=== PATIENT | male | born 1990 | race Caucasian/White ===

== ENCOUNTER 2018-07-06 20:50 | Emergency (ER) | payer SELFPAY ==
[2018-07-06 21:05] VITALS: BP 145/73; PULSE 89; TEMP 97.3; BMI 28.7
--- NOTE | 2018-07-06 21:36 | PDOC ---
History of Present Illness - General Chief Complaint: Lightheaded Stated Complaint: DIZZINESS Time Seen by Provider: 07/06/18 21:19 - History of Present Illness Initial Comments: 07/06/18 21:34 28 yo M with h/o vertigo, anxiety, who p/w dizziness. Patient reports acute onset of "spinning sensation," this evening when inside his car. Reports being startled in his car, when someone walked to his window and told him his car tire was flat. Symptom severity decreased after minutes, but recurred again when laying on the floor. States that he felt that the room was swaying. Symptom lasted for an hour. No identifiable triggers or alleviators. Reports h/ o similar symptoms years ago. Also endorses GI upset today following startle response. Recently recovered from URI type illness, congestion, and cough. + Nausea without vomiting x 1 week. Able to tolerate PO intake. Patient denies tinnitus, hearing loss, BARRETO, cough, wheezing, palpitations, F/C, CP, SOB, urinary complaints, hematuria, abdominal pain, diarrhea, constipation, BPR, weakness, sensory changes. PMHx: as noted above ROS: as noted Allergies: NKDA Medication: None Past History - Past Medical History Allergies/Adverse Reactions: Allergies Allergy/AdvReac Type Severity Reaction Status Date / Time No Known Allergies Allergy Verified 07/06/18 23:22 Home Medications: Ambulatory Orders No Home Medications 0 dose .ROUTE UTDICT 08/30/13 Meclizine HCl [Antivert -] 12.5 mg PO TID #21 tablet 07/06/18 Asthma: Yes - Suicide/Smoking/Psychosocial Hx Smoking History: Never smoked Information on smoking cessation initiated: No Hx Alcohol Use: No Drug/Substance Use Hx: No Review of Systems - Review of Systems Comments:: 07/06/18 21:35 GENERAL/CONSTITUTIONAL: No fever or chills. No weakness. HEAD, EYES, EARS, NOSE AND THROAT: No change in vision. No ear pain or discharge. No sore throat. CARDIOVASCULAR: No chest pain or shortness of breath RESPIRATORY: No cough, wheezing, or hemoptysis. GASTROINTESTINAL: + nausea. No vomiting, diarrhea or constipation. GENITOURINARY: No dysuria, frequency, or change in urination. MUSCULOSKELETAL: No joint or muscle swelling or pain. No neck or back pain. SKIN: No rash NEUROLOGIC: + Dizziness. No headache, loss of consciousness, or change in strength/sensation. ENDOCRINE: No increased thirst. No abnormal weight change HEMATOLOGIC/LYMPHATIC: No anemia, easy bleeding, or history of blood clots. ALLERGIC/IMMUNOLOGIC: No hives or skin allergy. *Physical Exam - Vital Signs Last Vital Signs Temp Pulse Resp BP Pulse Ox 97.3 F L 89 20 145/73 99 07/06/18 21:01 07/06/18 21:01 07/06/18 21:01 07/06/18 21:01 07/06/18 21:01 - Physical Exam Comments: 07/06/18 21:35 GENERAL: Awake, alert, and fully oriented, in no acute distress HEAD: No signs of trauma, normocephalic, atraumatic EYES: PERRLA, EOMI, sclera anicteric, conjunctiva clear ENT: Auricles normal inspection, hearing grossly normal, nares patent, oropharynx clear without exudates. Moist mucosa NECK: Normal ROM, supple, no lymphadenopathy, JVD, or masses LUNGS: No distress, speaks full sentences, clear to auscultation bilaterally HEART: Regular rate and rhythm, normal S1 and S2, no murmurs, rubs or gallops, peripheral pulses normal and equal bilaterally. ABDOMEN: Soft, nontender, normoactive bowel sounds. No guarding, no rebound. No masses EXTREMITIES : Normal inspection, Normal range of motion, no edema. No clubbing or cyanosis. NEUROLOGICAL: Absent Nystagmus. Cranial nerves II through XII grossly intact. Normal speech, normal gait, no focal sensorimotor deficits. Neg dysmetria on FTN. Normal HTS, DANETTE. SKIN: Warm, Dry, normal turgor, no rashes or lesions noted Medical Decision Making - Medical Decision Making 07/06/18 22:17 28 yo M with h/o vertigo, anxiety, who p/w dizziness. VSS, AF. Dizziness described as spinning sensation. Absent neuro deficits on physical exam. Absent Nystagmus. Low suspicion central vertigo. Symptoms likely 2/2 peripheral vertigo. Low suspicion VBI/TIA, or other concerning central pathology. Ed Course: Meclizine, Zofran, Ranitidine, Maloox 07/06/18 23:19 Patient symptoms improved. Stable for d/c with return precautions. Advised to f/ u with PMD. 07/06/18 23:27 Meclzine sent to pharmacy *DC/Admit/Observation/Transfer Diagnosis at time of Disposition: Vertigo - Discharge Dispostion Condition at time of disposition: Stable Decision to Admit order: No - Prescriptions Prescriptions: Meclizine HCl [Antivert -] 12.5 mg PO TID #21 tablet - Referrals - Patient Instructions Printed Discharge Instructions: DI for Syncope in Adults (Fainting), DI for Vertigo Additional Instructions: Please return to the emergency department with any new or worsening symptoms or concerns. Please follow up with your primary care physician within 72 hours. Can take Tums, Maloox, Pepcid for GI upset. Please take Meclizine as prescribed for vertigo. - Post Discharge Activity - Attestations Physician Attestion: 07/06/18 21:35 I attest to the information provided in this note.
--- NOTE | 2018-07-06 21:45 | PDOC ---
Attending Attestation - Resident Resident Name: AjTomPhong - ED Attending Attestation I have performed the following: I have examined & evaluated the patient, The case was reviewed & discussed with the resident, I agree w/resident's findings & plan, Exceptions are as noted - HPI HPI: 07/06/18 23:24 This is a 28 yo M who presents to the ER with a complaint of vertigo which began this evening after he was frightened Symptoms lasted for almost 1 hour and then resolved He noted vertigo when he was with his daughter No headache No fevers or chills Pt had similar symptoms 1 year ago No weakness no numbness No slurred speech No h/o CVA no h/o hypercoagulable state 07/06/18 23:25 - Physicial Exam PE: 07/06/18 23:26 Pt is awake and alert Ambulatory with a steady gait RRR CTA No abd tenderness No weakness No numbness No ataxia Face symmetric CN in tact - Medical Decision Making 07/06/18 23:26 Pt requesting that we not draw labs He is now feeling better Does not want to wait in the ER will plan to d/c to home Will give meclizine Pt to follow up with PMD Clinical impression: peripheral vertigo, initial presentation <Yumiko Varghese - Last Filed: 07/06/18 23:24> - HPI HPI: 07/06/18 23:27 The patient is a 28 year old male with a significant PMH of vertigo and anxiety who presents to the emergency department with lightheadedness since earlier today. The patient reports that he as sitting in his car earlier this evening when he was startled by someone who walked up to his window . the patient reports feeling his stomach drop followed by a spinning sensation for about an hour after he got home. The patient states that he has experienced this feeling in the past about 1 year ago. He states that he has recently been having some nausea without vomiting for about 1 week . he denies any other symptoms. He denies any fever, chills, vomiting, diarrhea, constipation or urinary symptoms. He denies any chest pain, shortness of breath, headache or dizziness. The patient denies any other complaints. - Physicial Exam PE: 07/06/18 23:27 GENERAL: The patient is in no acute distress. LUNGS: Breath sounds equal, clear to auscultation bilaterally. No wheezes, and no crackles. HEART:Regular rate and rhythm, normal S1 and S2 without murmur, rub or gallop. ABDOMEN: Soft, nontender, normoactive bowel sounds. No guarding, no rebound. No masses palpable. EXTREMITIES: Normal range of motion, no edema. No clubbing or cyanosis. No erythema, or tenderness. NEUROLOGICAL: Cranial nerves II through XII grossly intact. Normal speech. No focal neurological deficits. MUSCULOSKELETAL: Back non-tender to palpation, no CVA tenderness SKIN: Warm, Dry, normal turgor, no rashes or lesions noted. Documentation prepared by Soila Flores, acting as pesticide use medical coordinator for Yumiko Varghese MD. <Soila Flores - Last Filed: 07/06/18 23:27>
[2018-07-06] MEDS ORDERED: MAG HYDROX/AL HYDROX/SIMETH 30 ML UNIT-DOSE CUP PO ONE (22:14)
[2018-07-06] MEDS ORDERED: ONDANSETRON 4 MG TABLET PO ONE (22:14)
[2018-07-06] MEDS ORDERED: MECLIZINE HCL 25 MG TABLET (FP) PO ONE (22:14)
[2018-07-06] MEDS ORDERED: RANITIDINE HCL 150 MG TABLET (FP) PO ONE (22:14)
[2018-07-06] MEDS ORDERED: RANITIDINE HCL 150 MG TABLET (FP) ONE (23:26)
[2018-07-06] MEDS ORDERED: MECLIZINE HCL 25 MG TABLET (FP) ONE (23:26)
[2018-07-06] MEDS ORDERED: MAG HYDROX/AL HYDROX/SIMETH 30 ML UNIT-DOSE CUP ONE (23:27)
[2018-07-06] MEDS ORDERED: ONDANSETRON 8 MG TABLET (FP) PO ONE (23:27)
== END 2018-07-06 23:41 | disposition home or self-care (01) ==
LOC: JER 20:50
DX: R42 Dizziness and giddiness (principal); F41.9 Anxiety disorder, unspecified
CPT/HCPCS: 99281-25; 99282-25

== ENCOUNTER 2018-08-16 19:19 | Emergency (ER) | payer SELFPAY ==
[2018-08-16 19:49] VITALS: BP 144/76; PULSE 100; TEMP 98.6; BMI 30.1
--- NOTE | 2018-08-16 19:49 | PDOC ---
Rapid Medical Evaluation Time Seen by Provider: 08/16/18 19:47 Medical Evaluation: Allergies Allergy/AdvReac Type Severity Reaction Status Date / Time No Known Allergies Allergy Verified 07/06/18 23:22 08/16/18 19:47 Pt c/o: sudden onset of sweating, palpitations, jittery this evening, denies anxiety, stress, drug use Pt on brief exam: vss, pt ordered for: ekg pt to proceed to the ED Discharge Disposition - Diagnosis Palpitation - Referrals - Patient Instructions - Post Discharge Activity
--- NOTE | 2018-08-16 21:50 | PDOC ---
History of Present Illness - General Chief Complaint: Palpitations Stated Complaint: Palpitations Time Seen by Provider: 08/16/18 19:47 History Source: Patient Exam Limitations: No Limitations - History of Present Illness Initial Comments: 08/16/18 22:06 28 year old male with PMH anxiety, vertigo presented to ED for palpitations lasting 45 minutes. He stated he was lying in bed, thinking about work, and began to feel his heart racing, and was sweating. He stated the sweating lasted 10-15 minutes. He denied chest pain, shortness of breath, cough, fever, chills, nausea, vomiting, diarrhea, abdominal pain, numbness, weakness. He stated his symptoms felt similar to his prior anxiety attacks and that he frequently is concerned there is something medically wrong with him. He stated he has been under a lot of stress lately, only slept four hours last night, has his lorena birthday alliance party coming up and has had conflict at work with his parent. Past History - Past Medical History Allergies/Adverse Reactions: Allergies Allergy/AdvReac Type Severity Reaction Status Date / Time No Known Allergies Allergy Verified 08/16/18 19:49 Home Medications: Ambulatory Orders No Home Medications 0 dose .ROUTE UTDICT 08/30/13 Meclizine HCl [Antivert -] 12.5 mg PO TID #21 tablet 07/06/18 Asthma: Yes COPD: No Psychiatric Problems: Yes (Anxiety) - Suicide/Smoking/Psychosocial Hx Smoking History: Never smoked Hx Alcohol Use: No Drug/Substance Use Hx: No Substance Use Type: None Review of Systems - Review of Systems Able to Perform ROS?: Yes Comments:: 08/16/18 22:09 General: denied fever, chills, night sweats. HEENT: denied sore throat, rhinorrhea, ear pain. Heart: admitted to palpitations, diaphoresis. denied chest pain, syncope, lower extremity swelling. Respiratory: denied shortness of breath, cough, sputum production, hemoptysis. Abdomen: denied abdominal pain, nausea, vomiting, diarrhea, constipation, blood in stool. : denied dysuria, increased urinary frequency, hematuria, urinary incontinence , flank pain. Back: denied back pain. Musculoskeletal: denied joint pain, muscle pain, joint swelling. Neurological: denied headache, dizziness, numbness, tingling, weakness. Skin: denied rash, laceration, abrasion. *Physical Exam - Vital Signs Last Vital Signs Temp Pulse Resp BP Pulse Ox 98.6 F 100 H 18 144/76 100 08/16/18 19:46 08/16/18 19:46 08/16/18 19:46 08/16/18 19:46 08/16/18 19:46 - Physical Exam Comments: 08/16/18 22:10 Constitutional: Well-nourished, Well-developed, appearing stated age. HEENT: head is normocephalic, atraumatic. EOMI. PERRLA. Neck: supple. Full ROM. Heart: regular rhythm. no murmurs, rubs or gallops. Lungs: clear to auscultation bilaterally. no crackles, rhonchi or wheezing. no stridor. Abdomen: soft, nontender. normal bowel sounds. no rebound, guarding, masses. Extremities: Peripheral pulses intact. No lower extremity edema. Neurological: CN 2-12 grossly intact. Moves all four extremities. Psych: awake, alert, oriented x3. Follows commands. Answers questions appropriately. ED Treatment Course - LABORATORY CBC & Chemistry Diagram: 08/16/18 22:00 08/16/18 22:00 Medical Decision Making - Medical Decision Making 08/16/18 22:11 28 year old male with PMH anxiety, vertigo presented to ED for palpiations and diaphoresis. Initial Vital Signs Temp Pulse Resp BP Pulse Ox 98.6 F 100 H 18 144/76 100 08/16/18 19:46 08/16/18 19:46 08/16/18 19:46 08/16/18 19:46 08/16/18 19:46 Afebrile. Mild tachycardia. No tachypnea. Mild hypertension. No hypoxia on room air. Pending CBC for evaluation of possible anemia. Pending CMP for evaluation of possible electrolyte abnormality. Pending TSH for evaluation of possible hyperthyroidism. EKG performed 08/16/18 at 2012: rate 91, regular rhythm, normal axis, normal intervals, incomplete rightBBB, flipped T in III. EKG performed 08/30/13 at 1623: rate 87, regular rhythm, normal axis, normal intervals, incomplete rightBBB, flipped T in III. 08/16/18 23:00 CBC WBC 12.4 K/mm3 (4.0-10.0) H 08/16/18 22:00 RBC 4.82 M/mm3 (4.00-5.60) 08/16/18 22:00 Hgb 14.7 GM/dL (11.7-16.9) 08/16/18 22:00 Hct 42.3 % (35.4-49) 08/16/18 22:00 MCV 87.7 fl (80-96) 08/16/18 22:00 MCH 30.6 pg (25.7-33.7) 08/16/18 22:00 MCHC 34.8 g/dl (32.0-35.9) 08/16/18 22:00 RDW 13.7 % (11.9-15.9) 08/16/18:00 Plt Count 322 K/MM3 (134-434) 08/16/18 22:00 MPV 7.8 fl (7.5-11.1) 08/16/18 22:00 Absolute Neuts (auto) 9.4 K/mm3 (1.5-8.0) H 08/16/18 22:00 Neutrophils % 76.1 % (42.8-82.8) 08/16/18 22:00 Lymphocytes % 15.8 % (8-40) D 08/16/18 22:00 Monocytes % 7.4 % (3.8-10.2) 08/16/18 22:00 Eosinophils % 0.4 % (0-4.5) 08/16/18 22:00 Basophils % 0.3 % (0-2.0) 08/16/18 22:00 Nucleated RBC % 0 % (0-0) 08/16/18 22:00 Leukocytosis - No cough, no dysuria, no fever, no body aches No anemia CMP Sodium 140 mmol/L (136-145) 08/16/18 22:00 Potassium 4.0 mmol/L (3.5-5.1) 08/16/18 22:00 Chloride 105 mmol/L (98-107) 08/16/18 22:00 Carbon Dioxide 25 mmol/L (21-32) 08/16/18 22:00 Anion Gap 10 MMOL/L (8-16) 08/16/18 22:00 BUN 11 mg/dL (7-18) 08/16/18 22:00 Creatinine 1.0 mg/dL (0.55-1.3) 08/16/18 22:00 Creat Clearance w eGFR > 60 (>60) 08/16/18 22:00 Random Glucose 104 mg/dL (74-106) 08/16/18 22:00 Calcium 9.0 mg/dL (8.5-10.1) 08/16/18 22:00 Magnesium 2.1 mg/dL (1.8-2.4) 08/16/18 22:00 Total Bilirubin 0.2 mg/dL (0.2-1) 08/16/18 22:00 AST 21 U/L (15-37) 08/16/18 22:00 ALT 49 U/L (13-61) 08/16/18 22:00 Alkaline Phosphatase 75 U/L (45-117) 08/16/18 22:00 Total Protein 7.7 g/dl (6.4-8.2) 08/16/18 22:00 Albumin 4.0 g/dl (3.4-5.0) 08/16/18 22:00 TSH 1.18 uIU/ml (0.358-3.74) 08/16/18 22:00 No electrolyte abnormality. No GERSON. No LFT abnormalities. TSH normal. Pt reassessed, stated he is feeling better and would like to go home. Pt discharged. *DC/Admit/Observation/Transfer Diagnosis at time of Disposition: Palpitation - Discharge Dispostion Disposition: HOME Condition at time of disposition: Improved Decision to Admit order: No - Referrals - Patient Instructions Printed Discharge Instructions: DI for Palpitations Additional Instructions: You were seen today for palpitations. Your thyroid function was normal. You are not anemic. Your electrolytes are normal. Follow up with your primary care doctor in 1-2 days. Tell them you were seen in the Emergency Department. Return to the Emergency Department for palpitations, racing heart, feeling like you may pass out, passing out, chest pain, shortness of breath or any other new, worsening or concerning symptoms. - Post Discharge Activity
[2018-08-16] MEDS ORDERED: SODIUM CHLORIDE 1,000 ML IV STA (21:53)
[2018-08-16 22:17] LABS: BASO % 0.3 % (0-2.0); EOS % 0.4 % (0-4.5); HEMATOCRIT 42.3 % (35.4-49); HEMOGLOBIN 14.7 GM/dL (11.7-16.9); LYMPH % 15.8 % (8-40); MCH 30.6 pg (25.7-33.7); MCHC 34.8 g/dl (32.0-35.9); MEAN CELL VOLUME 87.7 fl (80-96); MEAN PLT VOLUME 7.8 fl (7.5-11.1); MONO % 7.4 % (3.8-10.2); NEUT % 76.1 % (42.8-82.8); PLATELET COUNT 322 K/MM3 (134-434); RBC 4.82 M/mm3 (4.00-5.60); RDW 13.7 % (11.9-15.9); WHITE BLOOD COUNT 12.4 K/mm3 (4.0-10.0)
[2018-08-16 22:58] LABS: ALK PHOS 75 U/L (45-117); ANION GAP 10 MMOL/L (8-16); BILIRUBIN,TOTAL 0.2 mg/dL (0.2-1); BLOOD UREA NITROGEN 11 mg/dL (7-18); CHLORIDE 105 mmol/L (98-107); CO2 25 mmol/L (21-32); GLUCOSE,RANDOM 104 mg/dL (74-106); MAGNESIUM 2.1 mg/dL (1.8-2.4); SGOT/AST 21 U/L (15-37); SGPT/ALT 49 U/L (13-61); SODIUM 140 mmol/L (136-145); TOT PROT 7.7 g/dl (6.4-8.2)
--- NOTE | 2018-08-16 23:14 | PDOC ---
Attending Attestation - Resident Resident Name: Isha Bran - ED Attending Attestation I have performed the following: I have examined & evaluated the patient, The case was reviewed & discussed with the resident, I agree w/resident's findings & plan, Exceptions are as noted - HPI HPI: 08/16/18 23:11 28-year-old male presents with palpitations. 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 - Physicial Exam PE: 08/16/18 23:14 wnwd 28 yo male head ncat eyes eomi neck supple,no bruits lungs xta b/l cvs [id number], no gallops,murmers ar rubs appreciated abd soft,nontender ext no edema neuro axox3,ambulatory,steady gait skin warm and dry - Medical Decision Making 08/16/18 23:16 ekg NSR with no evidence of ischemia labs unremarkable 08/16/18 23:18 imp palpitations, anxiety
--- NOTE | 2018-08-17 12:33 | EKG ---
Test Reason : Blood Pressure : / mmHG Vent. Rate : 091 BPM Atrial Rate : 091 BPM P-R Int : 164 ms QRS Dur : 098 ms QT Int : 348 ms P-R-T Axes : 056 027 025 degrees QTc Int : 428 ms NORMAL SINUS RHYTHM INCOMPLETE RIGHT BUNDLE BRANCH BLOCK BORDERLINE ECG Confirmed by MD GORDO, OSMAR ([id number]) on 08/17/2018 12:33:04 PM Referred By: Confirmed By:OSMAR CARO MD
== END 2018-08-17 00:35 | disposition home or self-care (01) ==
LOC: JER 19:19
PROC: 3E0337Z Introduction of Electrolytic and Water Balance Substance into Peripheral Vein, Percutaneous Approach (ICD-10-PCS; principal; 2018-08-16)
DX: R00.2 Palpitations (principal); F41.9 Anxiety disorder, unspecified
CPT/HCPCS: 36415; 80053; 83735; 84443; 85025; 93005; 93010; 99281-25; J7030

== ENCOUNTER 2023-12-16 17:46 | Emergency (ER) | payer SELFPAY ==
[2023-12-16 18:03] VITALS: BP 154/84; PULSE 98; RESP 18; TEMP 97.9; BMI 34.4
[2023-12-16] MEDS ORDERED: MECLIZINE HCL 25 MG TABLET (FP) ONE (19:43)
[2023-12-16] MEDS: MECLIZINE HCL 25 MG TABLET (FP) PO ONE (19:47)
== END 2023-12-16 19:55 | disposition home or self-care (01) ==
LOC: JER 17:46
DX: R42 Dizziness and giddiness (principal)
CPT/HCPCS: 99283-25